=== PATIENT | female | born 1945 | race Two or more races ===

== ENCOUNTER → 2016-11-23 | Outpatient (CLI) | payer MEDICARE, BC ==
[~2016-11-23] MED LIST: ASPI325T17 PO; ATOR40TA PO; CELE200C PO; CHOL40002 PO; CLOP75TA PO; CLOP75TA52 PO; CYAN10005 PO; GABA300C PO; HYDR2TAB29 PO; L-THYROXINE PO; LEVO25TA2 PO; MIRA25TA PO; PANT40TA3 PO; SENN1TAB67 PO; VENL150C PO; [UNRECOGNIZED DRUG - OTHER] PO; [UNRECOGNIZED DRUG - OTHER] TP
[2016-11-23 14:25] LABS: ASPARTATE AMINO TRANSFERASE 17 U/L (15-37); BLOOD UREA NITROGEN 16 mg/dL (7-18)
== END | disposition home or self-care (01) ==
LOC: LAB 13:58 → EDBD 13:58
PROVIDERS: ATTEND Specialist
DX: M81.8 Other osteoporosis without current pathological fracture (principal)
CPT/HCPCS: 36415; 80053

== ENCOUNTER 2016-12-19 18:18 | Day surgery (SDC) | payer MEDICARE, BC ==
[~2016-12-19] VITALS: Ht 142.2 cm; Wt 82.0 kg
[2016-12-19] MEDS ORDERED: SODIUM CHLORIDE FLUSH 10ML SYR IVF ONE (19:00)
[2016-12-19] MEDS ORDERED: SODIUM CHLORIDE 0.9% 1,000ML IVBOLUS ONE (19:00)
[2016-12-19] MEDS ORDERED: ONDANSETRON 2MG/ML, 2ML IVPush ONE ×2 (19:00→20:00)
[2016-12-19 19:31] LABS: HEMATOCRIT 48.3 % (34.6-47.8); HEMOGLOBIN 16.5 g/dL (11.7-16.4); WHITE BLOOD COUNT 13.4 x10^3/uL (3.4-10)
[2016-12-19 19:42] LABS: ASPARTATE AMINO TRANSFERASE 15 U/L (15-37); BLOOD UREA NITROGEN 17 mg/dL (7-18)
[2016-12-19] MEDS ORDERED: ONDANSETRON 2MG/ML, 2ML ONE ×2 (19:54→22:49)
[2016-12-19] MEDS ORDERED: HYDROmorphone 1 MG/ML, 1ML ONE (19:56)
[2016-12-19] MEDS ORDERED: HYDROmorphone 1 MG/ML, 1ML IVPush PRN (20:00)
[2016-12-19] MEDS ORDERED: OMNIPAQUE 350 MG/ML, 100ML BOTTLE ONE (21:34)
[2016-12-19] MEDS ORDERED: FENTANYL PF 100 MCG/2ML ONE ×2 (22:08→22:09)
[2016-12-19] MEDS ORDERED: MIDAZOLAM 1 MG/ML, 2ML ONE (22:09)
[2016-12-19] MEDS ORDERED: PROPOFOL 10 MG/ML, 20ML ONE (22:11)
[2016-12-19] MEDS ORDERED: CEFAZOLIN 1,000 MG ONE ×2 (22:13)
[2016-12-19] MEDS ORDERED: SUCCINYLCHOLINE 20 MG/ML, 10ML ONE (22:14)
[2016-12-19] MEDS ORDERED: ROCURONIUM 10 MG/ML ONE ×2 (22:14→22:36)
[2016-12-19] MEDS ORDERED: ACETAMINOPHEN 325 MG TABLET PO PRN (22:30)
[2016-12-19] MEDS ORDERED: HYDROmorphone 1 MG/ML, 1ML IV PRN (22:30)
[2016-12-19] MEDS ORDERED: FENTANYL PF 100 MCG/2ML IV PRN (22:30)
[2016-12-19] MEDS ORDERED: MEPERIDINE/PF 25MG/0.5ML IVPush PRN (22:30)
[2016-12-19] MEDS ORDERED: PROMETHAZINE 25 MG/ML, 1ML IV PRN (22:30)
[2016-12-19] MEDS ORDERED: ONDANSETRON 2MG/ML, 2ML IVPush PRN (22:30)
[2016-12-19] MEDS ORDERED: DEXAMETHASONE 4 MG/ML, 1ML ONE ×2 (22:49)
[2016-12-19] MEDS ORDERED: NEOSTIGMINE 1 MG/ML, 10ML ONE (22:55)
[2016-12-19] MEDS ORDERED: GLYCOPYRROLATE 0.4 MG/2 ML, 2ML ONE (22:55)
[2016-12-19] MEDS ORDERED: BUPIVACAINE/PF 0.5% INFIL ONE (23:25)
[2016-12-19] MEDS ORDERED: EPINEPHRINE 1 MG/ML, 1ML INFIL ONE (23:26)
[2016-12-20 00:29] VITALS: BP 148/88
[2016-12-20] MEDS ORDERED: HYDROmorphone 2 MG/ML, 1ML IV PRN (01:30)
[2016-12-20] MEDS ORDERED: ONDANSETRON 2MG/ML, 2ML IVPush PRN (01:30)
[2016-12-20] MEDS ORDERED: KETOROLAC 30 MG/1 ML IV PRN (01:30)
[2016-12-20] MEDS ORDERED: LACTATED RINGERS 1,000 ML IV SCH (01:30)
[2016-12-20] MEDS: HYDROcodone/APAP 5/325 TABLET PO PRN ×2 (03:39→08:35)
[2016-12-20 03:58] VITALS: BP 144/85
[2016-12-20 07:10] VITALS: BP 127/72
[2016-12-20] MEDS ORDERED: IBUP-1223 PO (09:22)
[2016-12-20] MEDS ORDERED: HYDR-882 PO (09:24)
[2016-12-20 10:02] VITALS: BP 136/79
== END 2016-12-20 10:32 | disposition home or self-care (01) ==
LOC: ED 19:40 → EDIP 22:06 → UNDOADMIN 22:06 → SDC 23:32 → EDIP 12-20 00:28 → 4NOR 12-20 00:28 → DCLOUNGE 12-20 10:20 → 4NOR 12-20 10:20 → SDC 12-20 10:32 → UNDODISIN 12-20 10:32
PROVIDERS: ATTEND Surgery
DX: K42.0 Umbilical hernia with obstruction, without gangrene (principal); E03.9 Hypothyroidism, unspecified; K21.9 Gastro-esophageal reflux disease without esophagitis; I10 Essential (primary) hypertension; Z86.73 Personal history of transient ischemic attack (TIA), and cerebral infarction without residual deficits; Z85.3 Personal history of malignant neoplasm of breast; Z88.6 Allergy status to analgesic agent; Z88.5 Allergy status to narcotic agent; Z88.8 Allergy status to other drugs, medicaments and biological substances
CPT/HCPCS: 36415; 74020; 74177; 80053; 81001; 83690; 85025; 93005; 96374; J0171; J0690; J1100; J1170; J2250; J2405; J2704; J2710; J3010; J3490; Q9967; C1781; J0330; J7030

== ENCOUNTER → 2017-09-08 | Outpatient (CLI) | payer MEDICARE, BC ==
[~2017-09-08] MED LIST changes: +CLOB15CR19 EXT; +HYDR-882 PO; +IBUP-1223 PO; +ROSU5TAB PO
== END | disposition home or self-care (01) ==
LOC: CFH 12:59
PROVIDERS: ATTEND Specialist
DX: Z13.820 Encounter for screening for osteoporosis (principal); M85.88 Other specified disorders of bone density and structure, other site
CPT/HCPCS: 77080

== ENCOUNTER 2019-08-27 10:07 | Observation (INO) | payer MEDICARE, BC ==
[~2019-08-27] VITALS: Ht 149.9 cm; Wt 71.6 kg
[~2019-08-27 10:07] MED LIST changes: +ASPI81TA45 PO; +ATOR40TA78 PO; +CYAN-27 PO; -CYAN10005 PO; +HYDR-3653 PO; -HYDR-882 PO; +LEVO75TA5 PO; +VENL75CA PO
[2019-08-27] MEDS ORDERED: DOXA1TAB2 PO (10:36)
[2019-08-27] MEDS ORDERED: NITROGLYCERIN SINGLE TAB 0.4 MG SL ONE (10:46)
[2019-08-27] MEDS ORDERED: NITROGLYCERIN SINGLE TAB 0.4 MG SL PRN (11:00)
[2019-08-27 11:34] LABS: ALANINE AMINOTRANSFERASE 33 U/L (12-78); ALBUMIN 3.6 g/dL (3.4-5.0); ANION GAP 10 mmol/L (5-15); CHLORIDE 106 mmol/L (98-107); CREATININE 0.61 mg/dL (0.55-1.02)
[2019-08-27 11:38] LABS: ALKALINE PHOSPHATASE 82 U/L (45-117); BASOPHILS # (AUTO) 0.03 x10^3/uL (0-0.1); BASOPHILS % (AUTO) 1 % (0-1); BILIRUBIN,TOTAL 0.6 mg/dL (0.2-1.0); EOSINOPHILS # (AUTO) 0.13 x10^3/uL (0-0.4); EOSINOPHILS % (AUTO) 2 % (1-7); LYMPHOCYTES # (AUTO) 2.22 x10^3/uL (1-3.4); LYMPHOCYTES % (AUTO) 36 % (22-44); MD NO; MEAN CORPUSCULAR HEMOGLOBIN 31.4 pg (27.0-34.8); MEAN CORPUSCULAR HGB CONC 33.1 g/dL (32.4-35.8); MEAN CORPUSCULAR VOLUME 94.9 fL (80-100); MEAN PLATELET VOLUME 7.6 fL (7.4-10.4); MONOCYTES # (AUTO) 0.46 x10^3/uL (0.2-0.8); MONOCYTES % (AUTO) 8 % (2-9); NEUTROPHILS # (AUTO) 3.32 x10^3/uL (1.8-6.8); NEUTROPHILS % (AUTO) 54 % (42-75); PLATELET COUNT 304 x10^3/uL (130-400); RED BLOOD COUNT 4.84 x10^6/uL (3.82-5.3); RED CELL DISTRIBUTION WIDTH 13.9 % (9.6-15.2); TOTAL PROTEIN 7.1 g/dL (6.4-8.2); TROPONIN I < 0.015 ng/mL (0.000-0.045)
[2019-08-27] MEDS ORDERED: SODIUM CHLORIDE FLUSH 10ML SYR IVF ONE (12:00)
--- NOTE | 2019-08-27 12:11 | NUR ---
patient came to the er for chest pain and angina that she states began today. a burning. she had stents recently placed here, x2. history includes htn, breast cancer, lymphedema left arm secondary to ca and masetomy double, and mi. patient is to be admitted. she is in bed, and states pain in chest improved from nitro sl. she is on monitor, rails up, now visiting.
[2019-08-27] MEDS ORDERED: CLOPIDOGREL 75 MG TABLET ONE (12:20)
[2019-08-27] MEDS ORDERED: CLOPIDOGREL 75 MG TABLET PO ONE (12:30)
--- NOTE | 2019-08-27 13:05 | NUR ---
REPORT CALLED TO [facility]. PATIENT IN BED RTG
[2019-08-27 13:33] VITALS: BP 154/74
[2019-08-27] MEDS ORDERED: ACETAMINOPHEN 325 MG TABLET PO PRN (14:30)
[2019-08-27] MEDS ORDERED: CLOBETASOL PROPIONATE CRM 0.05%, 15GM EXT PRN (14:30)
[2019-08-27] MEDS ORDERED: NITROGLYCERIN 0.4 MG BOTTLE (25 TABS) SL PRN (14:30)
[2019-08-27] MEDS ORDERED: ONDANSETRON 2MG/ML, 2ML IVPush PRN (14:30)
[2019-08-27 15:27] LABS: TROPONIN I < 0.015 ng/mL (0.000-0.045)
[2019-08-27 18:48] VITALS: BP 134/80
[2019-08-27 20:49] LABS: TROPONIN I < 0.015 ng/mL (0.000-0.045)
[2019-08-27] MEDS ORDERED: ATORVASTATIN 40 MG TABLET PO SCH (21:00)
[2019-08-27 21:20] VITALS: BP 158/76
[2019-08-27 23:30] VITALS: BP 127/70
[2019-08-28] MEDS ORDERED: MELATONIN 5 MG TABLET PO PRN
[2019-08-28 05:15] LABS: BASOPHILS # (AUTO) 0.02 x10^3/uL (0-0.1); BASOPHILS % (AUTO) 0 % (0-1); EOSINOPHILS # (AUTO) 0.16 x10^3/uL (0-0.4); EOSINOPHILS % (AUTO) 2 % (1-7); LYMPHOCYTES # (AUTO) 2.49 x10^3/uL (1-3.4); LYMPHOCYTES % (AUTO) 35 % (22-44); MD NO; MEAN CORPUSCULAR HEMOGLOBIN 31.7 pg (27.0-34.8); MEAN CORPUSCULAR HGB CONC 33.4 g/dL (32.4-35.8); MEAN CORPUSCULAR VOLUME 94.8 fL (80-100); MONOCYTES # (AUTO) 0.58 x10^3/uL (0.2-0.8); MONOCYTES % (AUTO) 8 % (2-9); NEUTROPHILS # (AUTO) 3.79 x10^3/uL (1.8-6.8); NEUTROPHILS % (AUTO) 54 % (42-75); PLATELET COUNT 290 x10^3/uL (130-400); RED BLOOD COUNT 4.64 x10^6/uL (3.82-5.3); RED CELL DISTRIBUTION WIDTH 13.8 % (9.6-15.2)
[2019-08-28 05:26] LABS: ANION GAP 11 mmol/L (5-15); CALCIUM 8.9 mg/dL (8.5-10.1); CHLORIDE 107 mmol/L (98-107)
[2019-08-28 05:27] LABS: CREATININE 0.58 mg/dL (0.55-1.02)
[2019-08-28] MEDS ORDERED: ASPIRIN 81 MG TABLET EC PO SCH (06:00)
[2019-08-28 06:32] VITALS: BP 141/62
[2019-08-28] MEDS ORDERED: CARV3.122 PO (08:07)
[2019-08-28] MEDS ORDERED: LEVOTHYROXINE 75 MCG TABLET PO SCH (09:00)
[2019-08-28] MEDS ORDERED: CLOPIDOGREL 75 MG TABLET PO SCH (09:00)
[2019-08-28] MEDS ORDERED: GABAPENTIN 300 MG CAPSULE PO SCH (09:00)
[2019-08-28] MEDS ORDERED: Mirabegron** (Myrbetriq**) 25 MG) HOMEMEDPO SCH (09:00)
[2019-08-28] MEDS ORDERED: DOXAZOSIN 1MG TABLET PO SCH (09:00)
[2019-08-28] MEDS ORDERED: VENLAFAXINE 75 MG CAP ER PO SCH (09:00)
[2019-08-28] MEDS ORDERED: PANTOPRAZOLE 40MG TABLET PO SCH (09:00)
[2019-08-30] MEDS ORDERED: CALC-183 PO (10:42)
== END 2019-08-28 10:14 | disposition home or self-care (01) ==
LOC: ED 11:24 → INTOOBSV 12:15 → EDIP 12:15 → 5SO 13:26 → DCLOUNGE 08-28 10:00
PROVIDERS: ADMIT Hospitalist; ATTEND Family Medicine
DX: R07.89 Other chest pain (principal); I24.9 Acute ischemic heart disease, unspecified; E03.9 Hypothyroidism, unspecified; E78.5 Hyperlipidemia, unspecified; F41.9 Anxiety disorder, unspecified; I10 Essential (primary) hypertension; I25.10 Atherosclerotic heart disease of native coronary artery without angina pectoris; I89.0 Lymphedema, not elsewhere classified; N39.3 Stress incontinence (female) (male); K21.9 Gastro-esophageal reflux disease without esophagitis; Z85.3 Personal history of malignant neoplasm of breast; Z86.73 Personal history of transient ischemic attack (TIA), and cerebral infarction without residual deficits; Z90.13 Acquired absence of bilateral breasts and nipples; Z95.5 Presence of coronary angioplasty implant and graft; Z79.82 Long term (current) use of aspirin; Z79.899 Other long term (current) drug therapy; Z92.3 Personal history of irradiation
CPT/HCPCS: 36415; 71045; 80048; 80053; 83036; 83735; 83880; 84100; 84484; 85025; 85379; 93005; 99285; G0378

== ENCOUNTER 2019-09-25 17:46 | Emergency (ER) | payer MEDICARE, BC ==
[~2019-09-25] VITALS: Ht 149.9 cm; Wt 72.8 kg
[~2019-09-25 17:46] MED LIST changes: +CALC-183 PO; +CARV3.122 PO; +DOXA1TAB2 PO
[2019-09-25 17:50] VITALS: BP 107/68
[2019-09-25] MEDS ORDERED: CEFTRIAXONE 1,000 MG ONE (20:34)
[2019-09-25] MEDS ORDERED: CEFTRIAXONE 1,000 MG IM ONE (21:00)
== END 2019-09-25 20:57 | disposition home or self-care (01) ==
LOC: ED 20:04
DX: L03.113 Cellulitis of right upper limb (principal); I10 Essential (primary) hypertension; E78.00 Pure hypercholesterolemia, unspecified; K21.9 Gastro-esophageal reflux disease without esophagitis; Z90.710 Acquired absence of both cervix and uterus; Z90.10 Acquired absence of unspecified breast and nipple; Z86.73 Personal history of transient ischemic attack (TIA), and cerebral infarction without residual deficits
CPT/HCPCS: 93971; 96372; 99284; J0696

== ENCOUNTER → 2020-02-08 | Outpatient (CLI) | payer MEDICARE, BC ==
[~2020-02-08] MED LIST changes: +REGADENOSON 0.4 MG/5 ML SYRINGE ONE
== END | disposition home or self-care (01) ==
LOC: CFH 11:43
PROVIDERS: ATTEND Internal Medicine
DX: I21.19 ST elevation (STEMI) myocardial infarction involving other coronary artery of inferior wall (principal); I25.10 Atherosclerotic heart disease of native coronary artery without angina pectoris; I10 Essential (primary) hypertension
CPT/HCPCS: 78452; 93017; A9502; J2785